=== PATIENT | female | born 1975 | race Caucasian/White ===

== ENCOUNTER 2020-01-23 17:40 | Emergency (ER) | payer MEDICAID ==
[~2020-01-23] VITALS: Ht 154.9 cm; Wt 71.4 kg
[2020-01-23] MEDS ORDERED: ENTE0.5T4 PO (18:06)
[2020-01-23] MEDS ORDERED: ZIPR20CA2 PO (18:06)
[2020-01-23] MEDS ORDERED: CHOL500043 PO (18:06)
[2020-01-23] MEDS ORDERED: PRAZ2 PO (18:06)
[2020-01-23] MEDS ORDERED: TRIA15CR49 TP (18:11)
[2020-01-23] MEDS ORDERED: HYD25 PO (18:11)
[2020-01-23] MEDS ORDERED: TENO300 PO (18:11)
[2020-01-23] MEDS ORDERED: VITS42.53 TD (18:11)
[2020-01-23] MEDS ORDERED: ACET-66 PO (18:11)
[2020-01-23] MEDS ORDERED: AMLO10TA7 PO (18:11)
[2020-01-23] MEDS ORDERED: WARF2TAB30 PO (18:11)
[2020-01-23] MEDS ORDERED: OMEP20 PO (18:11)
[2020-01-23] MEDS ORDERED: ZIPR40CA2 PO (18:11)
[2020-01-23] MEDS ORDERED: TOPI25 PO (18:11)
[2020-01-23 18:48] VITALS: BP 167/88
== END 2020-01-23 19:14 | disposition home or self-care (01) ==
LOC: EMS 17:41
DX: I10 Essential (primary) hypertension (principal); F41.9 Anxiety disorder, unspecified; G47.00 Insomnia, unspecified; Z88.6 Allergy status to analgesic agent; Z79.899 Other long term (current) drug therapy; Z86.718 Personal history of other venous thrombosis and embolism; Z76.0 Encounter for issue of repeat prescription

== ENCOUNTER 2021-12-17 17:14 | Emergency (ER) | payer MEDICAID, OTHER ==
[~2021-12-17] VITALS: Ht 154.9 cm; Wt 77.3 kg
[~2021-12-17 17:14] MED LIST: ACET-66 PO; AMLO-258 PO; CHOL500043 PO; ENTE0.5T12 PO; HYDR-4527 PO; OMEP20 PO; PRAZ2 PO; TENO300 PO; TOPI25 PO; TRIA15CR49 TP; VITS42.53 TD; WARF2TAB30 PO; ZIPR20CA2 PO; ZIPR40CA2 PO
[2021-12-17] MEDS ORDERED: FAMO-136 PO (17:43)
[2021-12-17] MEDS ORDERED: OMEP20 PO (17:43)
[2021-12-17] MEDS ORDERED: TENO300 PO (17:43)
[2021-12-17] MEDS ORDERED: ENTE0.5T PO (17:43)
[2021-12-17] MEDS ORDERED: RIVA10TA PO (17:43)
[2021-12-17] MEDS ORDERED: AMOX1TAB16 PO (18:05)
[2021-12-17 18:12] VITALS: BP 140/91
== END 2021-12-17 18:38 | disposition home or self-care (01) ==
LOC: EMS 17:14
DX: T81.49XA Infection following a procedure, other surgical site, initial encounter (principal); I10 Essential (primary) hypertension; Z86.718 Personal history of other venous thrombosis and embolism; Z87.19 Personal history of other diseases of the digestive system; Z87.09 Personal history of other diseases of the respiratory system; Z98.890 Other specified postprocedural states; Z88.8 Allergy status to other drugs, medicaments and biological substances; Y83.8 Other surgical procedures as the cause of abnormal reaction of the patient, or of later complication, without mention of misadventure at the time of the procedure
CPT/HCPCS: 99283; Z7502

== ENCOUNTER 2022-08-22 12:27 | Emergency (ER) | payer OTHER ==
[~2022-08-22] VITALS: Ht 160 cm; Wt 72.7 kg
[~2022-08-22 12:27] MED LIST changes: -ACET-66 PO; -AMLO-258 PO; +AMOX1TAB16 PO; -CHOL500043 PO; +ENTE0.5T PO; -ENTE0.5T12 PO; +FAMO-136 PO; -HYDR-4527 PO; -PRAZ2 PO; +RIVA10TA PO; -VITS42.53 TD; -WARF2TAB30 PO; -ZIPR20CA2 PO; -ZIPR40CA2 PO
[2022-08-22] MEDS ORDERED: LISI-894 PO (12:39)
[2022-08-22 16:08] LABS: BASOPHILS % (AUTO) 0.4 % (0.0-2.0); EOSINOPHILS % (AUTO) 2.1 % (1.0-6.0); HEMATOCRIT 43.1 % (36-46); HEMOGLOBIN 14.5 g/dL (12.0-16.0); LYMPHOCYTES # (AUTO) 1.5 K/uL (1.0-4.8); LYMPHOCYTES % (AUTO) 16.3 % (22.0-44.0); MEAN CORPUSCULAR HEMOGLOBIN 32.5 pg (26.0-34.0); MEAN CORPUSCULAR HGB CONC 33.7 G/dL (31.0-37.0); MEAN CORPUSCULAR VOLUME 96 fL (80-100); MONOCYTES # (AUTO) 0.6 K/uL (0.1-1.0); MONOCYTES % (AUTO) 6.5 % (2.0-9.0); NEUTROPHILS # (AUTO) 6.8 K/uL (1.8-7.7); NEUTROPHILS % (AUTO) 74.7 % (40.0-70.0); PLATELET COUNT (AUTO) 358 K/uL (150-450); RED BLOOD CELL COUNT(AUTO) 4.47 MIL/uL (4.00-5.20); RED CELL DISTRIBUTION WIDTH 13.7 % (11.5-14.5)
[2022-08-22 16:12] LABS: COVID AG,FIA SOURCE NASAL SWAB
[2022-08-22 16:31] LABS: ALANINE AMINOTRANSFERASE 20 U/L (12-78); ALKALINE PHOSPHATASE 102 U/L (46-116); ANION GAP 11 mmol/L (8-16); ASPARTATE AMINOTRANSFERASE 18 U/L (15-37); BILIRUBIN,TOTAL 0.3 mg/dL (0.1-1.0); CALCIUM, TOTAL 9.1 mg/dL (8.8-10.5); CARBON DIOXIDE 25 mmol/L (22-29); CHLORIDE 103 mmol/L (98-107); CREATININE 0.76 mg/dL (0.60-1.30); GLUCOSE,RANDOM 93 mg/dL (70-110); HCG,QUANTITATIVE < 1 mIU/mL (0-6); POTASSIUM 3.4 mmol/L (3.5-5.1); SODIUM SERUM 139 mmol/L (136-145); TOTAL PROTEIN, SERUM 9.4 g/dL (6.4-8.2); UREA NITROGEN, BLOOD 15 mg/dL (7-18)
[2022-08-22 16:32] LABS: GLOMERULAR FILTR. RATE CALC > 60 mL/min (>60)
[2022-08-22 16:46] LABS: B-TYPE NATRIURETIC PEPTIDE 33 pg/mL (0-100)
[2022-08-22 17:03] LABS: PROTHROMBIN TIME 10.9 SEC (9.4-11.6)
[2022-08-22 17:04] VITALS: BP 148/90
== END 2022-08-22 17:10 | disposition home or self-care (01) ==
LOC: EMS 12:31
DX: J40 Bronchitis, not specified as acute or chronic (principal); I10 Essential (primary) hypertension; Z98.890 Other specified postprocedural states; Z88.6 Allergy status to analgesic agent; Z79.01 Long term (current) use of anticoagulants; Z20.822 Contact with and (suspected) exposure to COVID-19
CPT/HCPCS: 71045; 80053; 83880; 84484; 84702; 85025; 85610; 87040; 93005; 99285; 36415-L1; 36415-TC

== ENCOUNTER 2024-04-15 18:42 | Emergency (ER) | payer OTHER ==
[~2024-04-15] VITALS: Ht 157.5 cm; Wt 77.3 kg
[~2024-04-15 18:42] MED LIST changes: -AMOX1TAB16 PO; -FAMO-136 PO; +LISI-894 PO; -TRIA15CR49 TP
[2024-04-15 18:51] VITALS: TEMP 98
[2024-04-15] MEDS ORDERED: FAMO20TA8 PO (20:16)
[2024-04-15] MEDS ORDERED: OMEP20CA12 PO (20:16)
[2024-04-15 20:31] LABS: BASOPHILS % (AUTO) 0.4 % (0.0-2.0); HEMATOCRIT 48.3 % (36-46); HEMOGLOBIN 15.7 g/dL (12.0-16.0); LYMPHOCYTES # (AUTO) 2.9 K/uL (1.0-4.8); LYMPHOCYTES % (AUTO) 30.9 % (22.0-44.0); MEAN CORPUSCULAR HEMOGLOBIN 32.4 pg (26.0-34.0); MEAN CORPUSCULAR HGB CONC 32.6 G/dL (31.0-37.0); MEAN CORPUSCULAR VOLUME 100 fL (80-100); MONOCYTES # (AUTO) 0.6 K/uL (0.1-1.0); MONOCYTES % (AUTO) 6.1 % (2.0-9.0); NEUTROPHILS # (AUTO) 5.6 K/uL (1.8-7.7); NEUTROPHILS % (AUTO) 59.6 % (40.0-70.0); PLATELET COUNT (AUTO) 344 K/uL (150-450); RED BLOOD CELL COUNT(AUTO) 4.85 MIL/uL (4.00-5.20); RED CELL DISTRIBUTION WIDTH 13.4 % (11.5-14.5); WHITE BLOOD COUNT (AUTO) 9.3 K/uL (4.5-11.0)
[2024-04-15] MEDS: FAMOTIDINE 20 MG/2 ML VIAL IVP ONE (20:31)
[2024-04-15] MEDS: ONDANSETRON HCL 4 MG/2 ML VIAL IVP ONE (20:31)
[2024-04-15] MEDS: SODIUM CHLORIDE 0.9% 1,000 ML IV ONE (20:31)
[2024-04-15 20:34] LABS: APPEARANCE,URINE CLEAR (CLEAR); BILIRUBIN,URINE NEGATIVE (NEGATIVE); COLOR,URINE COLORLESS (YELLOW); GLUCOSE, URINE (UA) NEGATIVE (NEGATIVE); KETONES,URINE NEGATIVE (NEGATIVE); LEUKOCYTE ESTERASE ,URINE TRACE (NEGATIVE); NITRATE,URINE NEGATIVE (NEGATIVE); OCCULT BLOOD,URINE NEGATIVE (NEGATIVE); PH,URINE 7.5 (5.0-8.0); PROTEIN,URINE NEGATIVE (NEGATIVE); SPECIFIC GRAVITIY, URINE 1.007 (1.003-1.030); UROBILINOGEN,URINE <=1.0 mg/dL (<=1.0)
[2024-04-15 20:41] LABS: ANION GAP 13 mmol/L (8-16); CALCIUM, TOTAL 8.4 mg/dL (8.8-10.5); CARBON DIOXIDE 26 mmol/L (22-29); CHLORIDE 101 mmol/L (98-107); CREATININE 0.84 mg/dL (0.60-1.30); GLOMERULAR FILTR. RATE CALC > 60 mL/min (>60); GLUCOSE,RANDOM 97 mg/dL (70-110); POTASSIUM 3.4 mmol/L (3.5-5.1); SODIUM SERUM 140 mmol/L (136-145); UREA NITROGEN, BLOOD 15 mg/dL (7-18)
[2024-04-15 20:46] LABS: ALANINE AMINOTRANSFERASE 17 U/L (12-78); ALBUMIN 4.1 g/dL (3.4-5.0); ALKALINE PHOSPHATASE 99 U/L (46-116); ASPARTATE AMINOTRANSFERASE 20 U/L (15-37); BILIRUBIN,TOTAL 0.3 mg/dL (0.1-1.0); LIPASE 53 U/L (16-77); TOTAL PROTEIN, SERUM 8.2 g/dL (6.4-8.2)
[2024-04-15] MEDS: SUCRALFATE 1 GM TABLET PO ONE (20:48)
[2024-04-15 20:49] LABS: BACTERIA,URINE Moderate /HPF (None Seen); RBC,URINE 0-2 /HPF (0-2); SQUAMOUS EPITHELIAL CELL,UR Few /LPF (None Seen)
[2024-04-15 21:02] LABS: TROPONIN I-HIGH SENSITIVITY 7 ng/L (<51)
[2024-04-15] MEDS ORDERED: SUCR1TAB2 PO (21:12)
[2024-04-15] MEDS ORDERED: OMEP20 PO (21:12)
[2024-04-15] MEDS ORDERED: ONDA-104 PO (21:12)
[2024-04-15 22:01] VITALS: BP 148/78; PULSE 62; RESP 15; O2SAT 98
== END 2024-04-15 22:02 | disposition home or self-care (01) ==
LOC: EMS 18:42
DX: K44.9 Diaphragmatic hernia without obstruction or gangrene (principal); R10.13 Epigastric pain; R42 Dizziness and giddiness; R11.0 Nausea; R20.2 Paresthesia of skin; I10 Essential (primary) hypertension; Z98.84 Bariatric surgery status; Z88.6 Allergy status to analgesic agent
CPT/HCPCS: 99285; 96374; 71045; 96361; 96375; 80048; 80076; 81001; 83690; 84484; 84703; 85025; 36415; 87086; 87186; 93005; J3490; J2405; J7030